=== PATIENT | male | born 1960 | race Caucasian/White ===

== ENCOUNTER 2024-05-11 11:15 | Emergency (ER) | payer BC ==
[~2024-05-11] VITALS: Ht 182.9 cm; Wt 102.1 kg
[2024-05-11 11:15] VITALS: BP_SYST 206; PULSE 66; RESP 17; TEMP 99; O2SAT 97
[2024-05-11] MEDS: predniSONE 20 MG TABLET PO ONE (11:52)
[2024-05-11] MEDS: FAMOTIDINE 20 MG TABLET PO ONE (11:52)
[2024-05-11] MEDS: DIPHENHYDRAMINE HCL 50 MG CAPSULE PO ONE (11:52)
[2024-05-11] MEDS: EPINEPHRINE HCL/PF 1 MG/ML AMP IM ONE (11:52)
[2024-05-11 12:11] LABS: BASOPHILS # (AUTO) 0.1 K/uL (0.0-0.2); BASOPHILS % (AUTO) 0.8 % (0.0-2.0); EOSINOPHILS # (AUTO) 0.2 K/uL (0.0-0.4); EOSINOPHILS % (AUTO) 1.9 % (0.0-4.0); HEMATOCRIT 44.2 % (36-54); HEMOGLOBIN 14.9 g/dL (14.0-18.0); LYMPHOCYTES # (AUTO) 3.3 K/uL (1.0-5.5); LYMPHOCYTES % (AUTO) 27.6 % (20.5-51.5); MEAN CORPUSCULAR HEMOGLOBIN 30 pg (27-31); MEAN CORPUSCULAR HGB CONC 34 % (32-36); MEAN CORPUSCULAR VOLUME 89 fL (79.0-98.0); MONOCYTES # (AUTO) 0.8 K/uL (0.0-1.0); MONOCYTES % (AUTO) 6.9 % (1.7-9.3); NEUTROPHILS # (AUTO) 7.4 K/uL (1.8-7.7); NEUTROPHILS % (AUTO) 62.8 % (40.0-70.0); PLATELET COUNT (AUTO) 250 K/uL (130-430); RED BLOOD CELL COUNT(AUTO) 4.97 MIL/uL (4.2-6.2); RED CELL DISTRIBUTION WIDTH 13.4 % (9.0-15.0); WHITE BLOOD COUNT (AUTO) 11.8 K/uL (4.8-10.8)
[2024-05-11 12:40] LABS: PROTHROMBIN TIME 10.4 SECS (9.5-12.5)
[2024-05-11 12:47] LABS: ALBUMIN 3.8 g/dL (3.4-4.8); BILIRUBIN,DIRECT 0.2 mg/dL (0.0-0.3); CALCIUM 8.8 mg/dL (8.4-11.0); CREATININE 0.83 mg/dL (0.55-1.30); POTASSIUM 4.8 mmol/L (3.5-5.1); TOTAL BILIRUBIN 0.6 mg/dL (0.0-1.0); TOTAL PROTEIN, SERUM 7.5 g/dL (6.4-8.3)
[2024-05-11] MEDS ORDERED: PRED20TA PO (13:03)
[2024-05-11] MEDS ORDERED: DIPH25CA83 PO (13:04)
== END 2024-05-11 14:07 | disposition home or self-care (01) ==
LOC: SED 11:15
DX: N47.1 Phimosis (principal); T78.3XXA Angioneurotic edema, initial encounter; I10 Essential (primary) hypertension; Z79.899 Other long term (current) drug therapy
CPT/HCPCS: 99284; 80076; 80048; 85025; 85610; 85730; 36415; 96372; 83605; 82397; Q0163; J7512; J0171